=== PATIENT | female | born 1970 | race Caucasian/White ===

== ENCOUNTER 2019-01-29 12:33 | Inpatient (IN) ==
[2019-01-29] MEDS ORDERED: ONDANSETRON 4 MG/2 ML VIAL IV PRN (13:56)
[2019-01-29] MEDS ORDERED: ACETAMINOPHEN 325 MG TABLET PO PRN (13:56)
[2019-01-29] MEDS ORDERED: ENOXAPARIN 40 MG/0.4 ML SYRINGE SUBCUT SCH (14:00)
[2019-01-29] MEDS ORDERED: LORazepam 2 MG/1 ML VIAL IV PRN (14:05)
[2019-01-29] MEDS ORDERED: DICYCLOMINE 10 MG CAPSULE PO PRN (14:07)
[2019-01-29] MEDS ORDERED: HydrOXYzine PAMOATE 25 MG CAPSULE PO PRN (14:07)
[2019-01-29] MEDS ORDERED: METHOCARBAMOL 750 MG TABLET PO PRN (14:07)
[2019-01-29] MEDS ORDERED: hydrOXYzine HCL 25 MG/1 ML VIAL IM PRN (14:07)
[2019-01-29] MEDS ORDERED: rOPINIRole 1 MG TABLET PO PRN (14:07)
[2019-01-29] MEDS ORDERED: cloNIDine 0.1 MG TABLET PO PRN (14:07)
[2019-01-29] MEDS ORDERED: GLUCAGON 1 MG VIAL IM PRN (14:09)
[2019-01-29] MEDS ORDERED: DEXTROSE 50% 25 GM/50 ML SYRINGE IV PRN (14:09)
[2019-01-29] MEDS: NICOTINE 21 MG/24 HR PATCH TRANSDERM SCH (14:52)
[2019-01-29] MEDS: GABAPENTIN 300 MG CAPSULE PO SCH ×2 (14:52→21:54)
[2019-01-29] MEDS: chlordiazePOXIDE 25 MG CAPSULE PO SCH ×2 (14:53→21:54)
[2019-01-29] MEDS: BUPRENORPHINE SL TAB 2 MG TABLET SL SCH ×2 (14:53→21:56)
[2019-01-29 14:56] LABS: Basophils # 0.1 10*3/uL (0.0-0.2); Basophils % 0.5 % (0.0-0.8); Eosinophils # 1.2 10*3/uL (0.0-0.87); Eosinophils % 9.7 % (0.00-10.9); Hematocrit 36.7 VOL% (35.7-47.0); Immature Granulocytes % 0.5 %; Immature Granulocytes Absolute 0.06 #; Lymphocytes # 3.9 10*3/uL (1.4-4.0); Lymphocytes % 30.2 % (21.3-54.2); Mean Corpuscular HGB Conc 32.7 GM/DL (32-36); Mean Corpuscular Hemoglobin 29 PG (27-34); Mean Corpuscular Volume 87.2 FL (87-102); Mean Platelet Volume 8.4 FL (9.6-12.0); Monocytes # 0.7 10*3/uL (0.11-0.8); Monocytes % 5.1 % (1.7-12.7); Neutrophils # 6.9 10*3/uL (1.4-7.4); Platelet Count 407 T/CUMM (130-400); Red Blood Count 4.21 MC/CUMM (3.8-5.5); Red Cell Distribution Width 14.1 % (9.3-17.3); White Blood Count 12.8 T/CUMM (4-12)
[2019-01-29] MEDS: SODIUM CHLORIDE 0.9% 1,000 ML IV SCH (14:56)
[2019-01-29] MEDS ORDERED: ALBUTEROL/IPRATROPIUM 3 ML NEB RESP TX PRN (15:03)
[2019-01-29 15:25] LABS: Alanine Aminotransferase 54 U/L (13-56); Albumin 3.5 G/DL (3.4-5.0); Alkaline Phosphatase 134 U/L (45-117); Aspartate Amino Transferase 104 U/L (0-37); Bilirubin,Total < 0.39 MG/DL (0.2-1.0); Blood Urea Nitrogen 26 MG/DL (7-18); Calcium 8.9 MG/DL (8.5-10.1); Cholesterol 182 MG/DL (50-200); Glucose 141 MG/DL (74-106); HDL Cholesterol 45 MG/DL (40-60); Osmolality,Calculated 285.4 MOS/KG (273-304); Potassium 3.2 MMOL/L (3.5-5.1); Risk Ratio 4.04; Sodium 140 MMOL/L (136-145); Total Protein 7.2 G/DL (6.4-8.3); Triglycerides 112 MG/DL (2-150); VLDL CHOLESTEROL 22.4 MG/DL
[2019-01-29] MEDS ORDERED: PARoxetine 20 MG TABLET PO SCH (15:30)
[2019-01-29] MEDS ORDERED: DULoxetine 30 MG CAPSULE PO SCH (15:30)
[2019-01-29] MEDS: DULoxetine 30 MG CAPSULE PO SCH (21:54)
[2019-01-29] MEDS: PARoxetine 20 MG TABLET PO SCH (21:55)
[2019-01-29] MEDS: BUDESONIDE/FORMOTEROL 160-4.5 INHALER 6 GM INH SCH (21:55)
[2019-01-29] MEDS: ENOXAPARIN 40 MG/0.4 ML SYRINGE SUBCUT SCH (21:56)
[2019-01-30] MEDS: chlordiazePOXIDE 25 MG CAPSULE PO SCH ×4 (02:21→23:14)
[2019-01-30] MEDS: SODIUM CHLORIDE 0.9% 1,000 ML IV SCH (03:13)
[2019-01-30 03:52] LABS: Apearance,Urine Slightly Hazy (Clear); Bacteria,Urine Occasional /HPF (Few); Bilirubin,Urine Negative (Negative); Blood, Urine Negative (Negative); Glucose,Urine (UA) Negative (Negative); Hyaline Casts,Urine 3 /LPF (0-3); Ketones,Urine Negative (Negative); Mucus,Urine Occasional /LPF (Occasional); Nitrite,Urine Negative (Negative); Protein,Urine Negative; RBC,Urine 1 /HPF (0-4); Squamous Epithelial Cell,Urine Occasional /HPF (0-10); Urine Color Yellow (Yellow); Urine Specific Gravity 1.016 (1.001-1.035); Urine Urobilinogen < 2.0 EU/DL (0.2-1.0); WBC,Urine 17 /HPF (0-6)
[2019-01-30 03:57] LABS: Barbiturates Screen,Urine Negative (Negative); Benzodiazepines Screen,Urine Negative (Negative); Cannabinoid Screen,Urine Negative (Negative); Opiate Screen,Urine Positive (Negative); Phencyclidine Screen,Urine Negative (Negative)
[2019-01-30] MEDS: BUPRENORPHINE SL TAB 2 MG TABLET SL SCH (06:59)
[2019-01-30] MEDS ORDERED: POTASSIUM CHLORIDE 20 MEQ TABLET PO ONE ×2 (07:05→13:00)
[2019-01-30] MEDS: NICOTINE 21 MG/24 HR PATCH TRANSDERM SCH (08:37)
[2019-01-30] MEDS: DULoxetine 30 MG CAPSULE PO SCH (08:38)
[2019-01-30] MEDS: PARoxetine 20 MG TABLET PO SCH (08:39)
[2019-01-30] MEDS: GABAPENTIN 300 MG CAPSULE PO SCH (08:39)
[2019-01-30] MEDS: BUDESONIDE/FORMOTEROL 160-4.5 INHALER 6 GM INH SCH ×2 (08:40→20:20)
[2019-01-30] MEDS ORDERED: NALOXONE 0.4 MG/ML VIAL ONE (09:50)
[2019-01-30] MEDS ORDERED: NALOXONE 0.4 MG/ML VIAL IV ONE (09:54)
[2019-01-30 12:01] LABS: Basophils % 0.3 % (0.0-0.8); Eosinophils # 1.7 10*3/uL (0.0-0.87); Eosinophils % 15.1 % (0.00-10.9); Hematocrit 39.2 VOL% (35.7-47.0); Immature Granulocytes % 0.3 %; Immature Granulocytes Absolute 0.04 #; Lymphocytes # 3.9 10*3/uL (1.4-4.0); Lymphocytes % 34.1 % (21.3-54.2); Mean Corpuscular HGB Conc 30.6 GM/DL (32-36); Mean Corpuscular Hemoglobin 29 PG (27-34); Mean Corpuscular Volume 93.8 FL (87-102); Mean Platelet Volume 8.4 FL (9.6-12.0); Monocytes # 0.9 10*3/uL (0.11-0.8); Monocytes % 7.4 % (1.7-12.7); Neutrophils % 42.8 % (38.7-73.9); Platelet Count 373 T/CUMM (130-400); Red Blood Count 4.18 MC/CUMM (3.8-5.5); Red Cell Distribution Width 14.5 % (9.3-17.3); White Blood Count 11.6 T/CUMM (4-12)
[2019-01-30 12:12] LABS: Band Neutrophils 1 % (0-10); Eosinophils 13 % (0-10); Lymphocytes 23 % (20-55); Macrocytosis Slight; Platelet Estimate Normal; Segmented Neutrophils 57 % (50-85); Total Cells Counted 100
[2019-01-30 12:15] LABS: Osmolality,Calculated 277.7 MOS/KG (273-304)
[2019-01-30] MEDS ORDERED: chlordiazePOXIDE 25 MG CAPSULE PO PRN (14:07)
[2019-01-30] MEDS: GABAPENTIN 100 MG CAPSULE PO SCH ×2 (14:16→20:18)
[2019-01-30] MEDS: ENOXAPARIN 40 MG/0.4 ML SYRINGE SUBCUT SCH (20:18)
[2019-01-30] MEDS: LISINOPRIL 20 MG TABLET PO SCH (23:14)
[2019-01-31 04:06] LABS: Basophils # 0.1 10*3/uL (0.0-0.2); Basophils % 0.4 % (0.0-0.8); Eosinophils # 1.9 10*3/uL (0.0-0.87); Eosinophils % 15.2 % (0.00-10.9); Hematocrit 35.6 VOL% (35.7-47.0); Hemoglobin 11.3 GM/DL (12.0-16.0); Immature Granulocytes % 0.3 %; Immature Granulocytes Absolute 0.04 #; Lymphocytes # 4.3 10*3/uL (1.4-4.0); Lymphocytes % 34.9 % (21.3-54.2); Mean Corpuscular HGB Conc 31.7 GM/DL (32-36); Mean Corpuscular Hemoglobin 29 PG (27-34); Mean Corpuscular Volume 90.6 FL (87-102); Mean Platelet Volume 8.4 FL (9.6-12.0); Monocytes # 0.6 10*3/uL (0.11-0.8); Neutrophils # 5.4 10*3/uL (1.4-7.4); Neutrophils % 44.2 % (38.7-73.9); Platelet Count 371 T/CUMM (130-400); Red Blood Count 3.93 MC/CUMM (3.8-5.5); Red Cell Distribution Width 14.3 % (9.3-17.3); White Blood Count 12.3 T/CUMM (4-12)
[2019-01-31 04:26] LABS: Calcium 8.1 MG/DL (8.5-10.1); Osmolality,Calculated 280.3 MOS/KG (273-304); Potassium 4.1 MMOL/L (3.5-5.1)
[2019-01-31 04:48] LABS: Eosinophils 17 % (0-10); Lymphocytes 36 % (20-55); Segmented Neutrophils 43 % (50-85); Total Cells Counted 100
[2019-01-31 04:49] LABS: Hypochromasia Slight; Platelet Estimate Normal
[2019-01-31 04:50] LABS: Reactive Lymphocytes Few
[2019-01-31] MEDS: SODIUM CHLORIDE 0.9% 1,000 ML IV SCH (06:11)
[2019-01-31] MEDS: chlordiazePOXIDE 25 MG CAPSULE PO SCH ×3 (06:12→22:55)
[2019-01-31] MEDS: NICOTINE 21 MG/24 HR PATCH TRANSDERM SCH (08:23)
[2019-01-31] MEDS: DULoxetine 30 MG CAPSULE PO SCH (08:24)
[2019-01-31] MEDS: PARoxetine 20 MG TABLET PO SCH (08:24)
[2019-01-31] MEDS: GABAPENTIN 100 MG CAPSULE PO SCH ×3 (08:24→20:22)
[2019-01-31] MEDS: BUDESONIDE/FORMOTEROL 160-4.5 INHALER 6 GM INH SCH ×2 (14:24→20:21)
[2019-01-31] MEDS: ENOXAPARIN 40 MG/0.4 ML SYRINGE SUBCUT SCH (20:21)
[2019-01-31] MEDS: LISINOPRIL 20 MG TABLET PO SCH ×2 (20:21→20:23)
[2019-02-01] MEDS: SODIUM CHLORIDE 0.9% 1,000 ML IV SCH (02:04)
[2019-02-01] MEDS: chlordiazePOXIDE 25 MG CAPSULE PO SCH (05:43)
[2019-02-01 07:41] VITALS: BP 108/80
[2019-02-01] MEDS: NICOTINE 21 MG/24 HR PATCH TRANSDERM SCH (08:27)
[2019-02-01] MEDS: GABAPENTIN 100 MG CAPSULE PO SCH (08:28)
[2019-02-01] MEDS: PARoxetine 20 MG TABLET PO SCH (08:28)
[2019-02-01] MEDS: DULoxetine 30 MG CAPSULE PO SCH (08:28)
[2019-02-01] MEDS: BUDESONIDE/FORMOTEROL 160-4.5 INHALER 6 GM INH SCH (08:31)
== END 2019-02-01 09:33 | DRG 772 ==
LOC: N.4E 13:27 → SUATTDRO 13:27
PROVIDERS: ADMIT Internal Medicine; ATTEND Hospitalist